=== PATIENT | female | born 1985 | race Caucasian/White ===

== ENCOUNTER 2017-03-13 21:23 | Inpatient (IN) | payer OTHER ==
[2017-03-13 23:27] LABS: ADD MAN DIFF? NO
[2017-03-13 23:32] LABS: BASOPHILS % 0.2 % (0.0-2.0); EOSINOPHILS # 0.3 10^3/ul (0.0-0.5); EOSINOPHILS % 3.2 % (0.0-7.0); HEMATOCRIT 26.4 % (37.0-47.0); HEMOGLOBIN 8.4 g/dl (12.0-16.0); LYMPHOCYTES # 1.3 10^3/ul (0.8-2.9); LYMPHOCYTES % 15.5 % (15.0-51.0); MEAN CORPUSCULAR HEMOGLOBIN 28.5 pg (29.0-33.0); MEAN CORPUSCULAR HGB CONC 31.8 g/dl (32.0-37.0); MEAN CORPUSCULAR VOLUME 89.5 fl (82.0-101.0); MONOCYTE # 0.7 10^3/ul (0.3-0.9); MONOCYTES % 7.7 % (0.0-11.0); NEUTROPHIL # 6.3 10^3/ul (1.6-7.5); NEUTROPHILS % 72.9 % (39.0-77.0); PLATELET COUNT 280 10^3/UL (140-415); RED BLOOD COUNT 2.95 10^6/ul (4.20-5.40); RED CELL DISTRIBUTION WIDTH 14.2 % (11.5-14.5)
[2017-03-13 23:32] LABS: WHITE BLOOD COUNT 8.6 10^3/ul (4.8-10.8)
[2017-03-14 00:23] LABS: HEPATITIS B SURFACE ANTIGEN NEGATIVE (NEGATIVE)
[2017-03-14 00:38] LABS: HIV 1&2 ANTIBODY NEGATIVE (NEGATIVE)
[2017-03-14 02:05] LABS: ADD UMIC YES; UR ASCORBIC ACID 40 mg/dL (NEGATIVE); UR BACTERIA FEW /HPF (NONE SEEN); UR BILIRUBIN (Dip) NEGATIVE (NEGATIVE); UR BLOOD (Dip) NEGATIVE (NEGATIVE); UR CLARITY CLOUDY (CLEAR); UR COLOR YELLOW (YELLOW); UR GLUCOSE (Dip) NEGATIVE (NEGATIVE); UR KETONES (Dip) NEGATIVE (NEGATIVE); UR LEUKOCYTE ESTERASE (Dip) 3+ Leu/ul (NEGATIVE); UR MUCUS FEW /HPF (NONE SEEN); UR NITRITE (Dip) POSITIVE (NEGATIVE); UR RBC 20 /HPF (0-5); UR SPECIFIC GRAVITY (Dip) 1.024 (1.003-1.030); UR SQUAMOUS EPITHELIAL CELL FEW /HPF (FEW); UR TOTAL PROTEIN (Dip) NEGATIVE (NEGATIVE); UR UROBILINOGEN (Dip) NEGATIVE (NEGATIVE); UR WBC 74 /HPF (0-5)
[2017-03-14] MEDS: LACTATED RINGER'S 1,000 ML IV (03:38)
[2017-03-14] MEDS: SOD CHLORIDE 0.9% 1,000 ML IV ×4 (04:19→23:23)
[2017-03-14] MEDS: CEFTRIAXONE 1 GM/50 ML (PMX) 50 ML IVPB (04:24)
[2017-03-14] MEDS ORDERED: CEFTRIAXONE 1 GM INJ IVPB (09:00)
[2017-03-14] MEDS: DOCUSATE SODIUM 100 MG CAP PO (09:13)
[2017-03-14] MEDS: PRENATAL VITAMIN PO (09:13)
[2017-03-14 16:38] LABS: RAPID PLASMA REAGIN REACTIVE (NR)
[2017-03-14] MEDS: ACETAMINOPHEN 325 MG TAB PO (23:23)
[2017-03-15 00:42] LABS: HEPATITIS C VIRAL ANTIBODY NEGATIVE (NEGATIVE)
[2017-03-15] MEDS: CEFTRIAXONE 1 GM/50 ML (PMX) 50 ML IVPB (03:43)
[2017-03-15] MEDS: SOD CHLORIDE 0.9% 1,000 ML IV ×3 (06:32→22:11)
[2017-03-15] MEDS: ACETAMINOPHEN 325 MG TAB PO (09:09)
[2017-03-15] MEDS: PRENATAL VITAMIN PO (09:09)
[2017-03-15] MEDS: DOCUSATE SODIUM 100 MG CAP PO (09:09)
[2017-03-15 12:01] LABS: RUBELLA ANTIBODY - IGG 1.26 index
[2017-03-16] MEDS ORDERED: LACTATED RINGER'S 1,000 ML IV (02:38)
[2017-03-16] MEDS: CEFTRIAXONE 1 GM/50 ML (PMX) 50 ML IVPB (03:57)
[2017-03-16] MEDS: SOD CHLORIDE 0.9% 1,000 ML IV (06:31)
[2017-03-16] MEDS ORDERED: BETAMET NA PHOS/AC(6 MG/ML) 5ML INJ IM (09:00)
[2017-03-16] MEDS: DOCUSATE SODIUM 100 MG CAP PO (09:50)
[2017-03-16] MEDS: FERROUS SULFATE (EC) 325 MG TAB PO (09:50)
[2017-03-16] MEDS: PRENATAL VITAMIN PO (09:50)
[2017-03-16 12:47] LABS: RUBELLA ANTIBODY - IGM <20.00 AU/mL
[2017-03-16 20:12] LABS: FLUORESCENT TREPONEMAL AB REACTIVE (NON-REACTIVE)
== END 2017-03-16 11:15 | disposition left against medical advice (07) | DRG 781 ==
LOC: OBT 21:23 → L-D 21:24 → PP1 03-14 22:57
DX: O23.02 Infections of kidney in pregnancy, second trimester (principal); O60.02 Preterm labor without delivery, second trimester; N10 Acute pyelonephritis; B96.20 Unspecified Escherichia coli [E. coli] as the cause of diseases classified elsewhere; O09.32 Supervision of pregnancy with insufficient antenatal care, second trimester; Z3A.24 24 weeks gestation of pregnancy; Z59.0 Homelessness
CPT/HCPCS: 36415; 76815; 76817; 81001; 85025; 86592; 86703; 86762; 86803; 86900; 86901; 87086; 87285; 87340

== ENCOUNTER 2017-03-16 17:23 | Outpatient (CLI) | payer OTHER | END 2017-03-16 17:36 | disposition left against medical advice (07) | LOC: OBT 17:23 → L-D 17:24 → OBT 17:36 | DX: O26.852 Spotting complicating pregnancy, second trimester (principal); Z3A.24 24 weeks gestation of pregnancy | CPT/HCPCS: Z7500 ==

== ENCOUNTER 2017-04-28 17:01 | Outpatient (CLI) | payer OTHER | END 2017-04-28 20:42 | disposition home or self-care (01) | LOC: OBT 17:01 → L-D 17:02 → OBT 20:42 | DX: O26.893 Other specified pregnancy related conditions, third trimester (principal); R10.2 Pelvic and perineal pain | CPT/HCPCS: 76817 ==

== ENCOUNTER 2017-05-16 11:42 | Inpatient (IN) | payer OTHER ==
[2017-05-16 14:26] LABS: ADD UMIC YES; UR ASCORBIC ACID 40 mg/dL (NEGATIVE); UR BACTERIA FEW /HPF (NONE SEEN); UR BILIRUBIN (Dip) NEGATIVE (NEGATIVE); UR BLOOD (Dip) NEGATIVE (NEGATIVE); UR CLARITY SLIGHTLY CLOUDY (CLEAR); UR COLOR YELLOW (YELLOW); UR GLUCOSE (Dip) NEGATIVE (NEGATIVE); UR KETONES (Dip) NEGATIVE (NEGATIVE); UR LEUKOCYTE ESTERASE (Dip) 3+ Leu/ul (NEGATIVE); UR MUCUS FEW /HPF (NONE SEEN); UR NITRITE (Dip) NEGATIVE (NEGATIVE); UR RBC 3 /HPF (0-5); UR SPECIFIC GRAVITY (Dip) 1.025 (1.003-1.030); UR SQUAMOUS EPITHELIAL CELL FEW /HPF (FEW); UR TOTAL PROTEIN (Dip) NEGATIVE (NEGATIVE); UR UROBILINOGEN (Dip) 1+ mg/dL (NEGATIVE); UR WBC 21 /HPF (0-5)
[2017-05-16 14:37] LABS: RUPTURE FETAL MEMBRANES NEGATIVE (NEGATIVE)
[2017-05-16 14:58] LABS: AMPHETAMINE/METHAMPHETAMINE Negative (NEGATIVE)
[2017-05-16 15:09] LABS: BARBITURATES Negative (NEGATIVE); BENZODIAZEPINES Negative (NEGATIVE); CANNABINOIDS Negative (NEGATIVE); COCAINE Negative (NEGATIVE); OPIATES Negative (NEGATIVE)
[2017-05-16] MEDS: ACETAMINOPHEN 325 MG TAB PO (17:07)
[2017-05-16] MEDS: LACTATED RINGER'S 1,000 ML IV ×2 (17:07→20:36)
[2017-05-16] MEDS: PENICILLIN G BENZ 2.4 MIL UNIT SYG IM (17:27)
[2017-05-16] MEDS: DIPHTH/TET/ACEL PERTUSS (ADULT) 0.5 ML VIAL IM* (17:31)
[2017-05-16] MEDS: AZITHROMYCIN 250 MG TAB PO (17:38)
[2017-05-16 17:53] LABS: ADD MAN DIFF? NO
[2017-05-16 17:56] LABS: WHITE BLOOD COUNT 9.6 10^3/ul (4.8-10.8)
[2017-05-16 17:56] LABS: BASOPHILS % 0.3 % (0.0-2.0); EOSINOPHILS # 0.2 10^3/ul (0.0-0.5); EOSINOPHILS % 2.1 % (0.0-7.0); HEMATOCRIT 26.2 % (37.0-47.0); HEMOGLOBIN 8.2 g/dl (12.0-16.0); LYMPHOCYTES # 1.2 10^3/ul (0.8-2.9); LYMPHOCYTES % 12.1 % (15.0-51.0); MEAN CORPUSCULAR HEMOGLOBIN 25.6 pg (29.0-33.0); MEAN CORPUSCULAR HGB CONC 31.3 g/dl (32.0-37.0); MEAN CORPUSCULAR VOLUME 81.9 fl (82.0-101.0); MEAN PLATELET VOLUME 9.4 fl (7.4-10.4); MONOCYTE # 0.7 10^3/ul (0.3-0.9); MONOCYTES % 7.6 % (0.0-11.0); NEUTROPHIL # 7.2 10^3/ul (1.6-7.5); NEUTROPHILS % 75.7 % (39.0-77.0); PLATELET COUNT 314 10^3/UL (140-415); RED CELL DISTRIBUTION WIDTH 15.7 % (11.5-14.5)
[2017-05-16 18:55] LABS: HEPATITIS B SURFACE ANTIGEN NEGATIVE (NEGATIVE)
[2017-05-16 19:13] LABS: HEPATITIS C VIRAL ANTIBODY NEGATIVE (NEGATIVE)
[2017-05-16] MEDS: ACETAMINOPHEN 500 MG TAB PO (19:26)
[2017-05-16 20:05] LABS: HIV 1&2 ANTIBODY NEGATIVE (NEGATIVE)
[2017-05-17] MEDS: LACTATED RINGER'S 1,000 ML IV ×3 (00:49→17:08)
[2017-05-17] MEDS: CEFTRIAXONE 250 MG INJ IM (00:50)
[2017-05-17] MEDS: PRENATAL VITAMIN PO (09:22)
[2017-05-17] MEDS: FERROUS SULFATE (EC) 325 MG TAB PO (09:22)
[2017-05-17] MEDS: DOCUSATE SODIUM 100 MG CAP PO (09:22)
[2017-05-17] MEDS: ACETAMINOPHEN 500 MG TAB PO ×2 (11:38→17:11)
[2017-05-17 21:57] LABS: RAPID PLASMA REAGIN NONREACTIVE (NR)
[2017-05-18] MEDS: LACTATED RINGER'S 1,000 ML IV (00:20)
== END 2017-05-18 02:00 | disposition left against medical advice (07) | DRG 781 ==
LOC: OBT 11:42 → L-D 05-17 08:32 → OBT 15:20 → L-D 15:20
DX: O98.113 Syphilis complicating pregnancy, third trimester (principal); R42 Dizziness and giddiness; Z3A.33 33 weeks gestation of pregnancy
CPT/HCPCS: 76815; 76817; 76818; 80307; 81001; 84112; 85025; 86592; 86703; 86803; 86850; 86900; 86901; 87086; 87340; 87591; 90715

== ENCOUNTER 2017-06-03 02:53 | Outpatient (CLI) | payer OTHER ==
[2017-06-03] MEDS: LACTATED RINGER'S 1,000 ML IV (03:59)
[2017-06-03 04:14] LABS: ADD UMIC YES; UR ASCORBIC ACID NEGATIVE (NEGATIVE); UR BILIRUBIN (Dip) NEGATIVE (NEGATIVE); UR BLOOD (Dip) NEGATIVE (NEGATIVE); UR CLARITY SLIGHTLY CLOUDY (CLEAR); UR COLOR YELLOW (YELLOW); UR GLUCOSE (Dip) NEGATIVE (NEGATIVE); UR KETONES (Dip) NEGATIVE (NEGATIVE); UR LEUKOCYTE ESTERASE (Dip) 3+ Leu/ul (NEGATIVE); UR NITRITE (Dip) NEGATIVE (NEGATIVE); UR RBC 3 /HPF (0-5); UR SPECIFIC GRAVITY (Dip) 1.014 (1.003-1.030); UR SQUAMOUS EPITHELIAL CELL FEW /HPF (FEW); UR TOTAL PROTEIN (Dip) NEGATIVE (NEGATIVE); UR UROBILINOGEN (Dip) NEGATIVE (NEGATIVE); UR WBC 19 /HPF (0-5)
[2017-06-03 04:21] LABS: RUPTURE FETAL MEMBRANES NEGATIVE (NEGATIVE)
== END 2017-06-03 05:15 | disposition home or self-care (01) ==
LOC: OBT 02:53 → L-D 02:54 → OBT 05:15
DX: O60.03 Preterm labor without delivery, third trimester (principal); Z3A.36 36 weeks gestation of pregnancy
CPT/HCPCS: 36415; 76818; 81001; 84112; 87086

== ENCOUNTER 2017-09-17 13:23 | Emergency (ER) | payer SELFPAY, OTHER | END 2017-09-17 13:58 | disposition left against medical advice (07) | LOC: E/R 13:58 | DX: Z53.21 Procedure and treatment not carried out due to patient leaving prior to being seen by health care provider (principal) ==

== ENCOUNTER 2018-08-31 16:56 | Observation (INO) | payer OTHER ==
[2018-08-31 17:41] LABS: ADD MAN DIFF? NO
[2018-08-31 17:51] LABS: WHITE BLOOD COUNT 5.1 10^3/ul (4.8-10.8)
[2018-08-31 17:51] LABS: ABNORMAL IP MESSAGE 1; BASOPHILS % 0.4 % (0.0-2.0); EOSINOPHILS # 0.2 10^3/ul (0.0-0.5); EOSINOPHILS % 3.1 % (0.0-7.0); HEMATOCRIT 36.1 % (37.0-47.0); HEMOGLOBIN 11.3 g/dl (12.0-16.0); LYMPHOCYTES # 1.2 10^3/ul (0.8-2.9); LYMPHOCYTES % 23.8 % (15.0-51.0); MEAN CORPUSCULAR HEMOGLOBIN 25.6 pg (29.0-33.0); MEAN CORPUSCULAR HGB CONC 31.3 g/dl (32.0-37.0); MEAN CORPUSCULAR VOLUME 81.9 fl (82.0-101.0); MEAN PLATELET VOLUME 9.1 fl (7.4-10.4); MONOCYTE # 0.4 10^3/ul (0.3-0.9); MONOCYTES % 7.6 % (0.0-11.0); NEUTROPHIL # 3.3 10^3/ul (1.6-7.5); NEUTROPHILS % 65.1 % (39.0-77.0); PLATELET COUNT 279 10^3/UL (140-415); RED BLOOD COUNT 4.41 10^6/ul (4.20-5.40)
[2018-08-31 17:58] LABS: POSITIVE DIFF @See below
[2018-08-31 18:02] LABS: ANION GAP 7 (5-13); BLOOD UREA NITROGEN 10 mg/dl (7-20); CARBON DIOXIDE 27 mmol/L (21-31); CHLORIDE 108 mmol/L (97-110); CREATININE 0.87 mg/dl (0.44-1.00); Estimated GFR > 60 mL/min (>60); GLUCOSE 94 mg/dl (70-220); POTASSIUM 3.8 mmol/L (3.5-5.1); SODIUM 142 mmol/L (135-144)
[2018-08-31 19:06] LABS: TROPONIN-I < 0.012 ng/ml (0.000-0.120)
[2018-08-31 19:49] LABS: RETICULOCYTE RBC 4.37
[2018-08-31 19:49] LABS: RETICULOCYTE COUNT # 0.036 X10^6 (0.020-0.110); RETICULOCYTE COUNT % 0.8 % (0.5-1.5)
[2018-08-31] MEDS ORDERED: ACETAMINOPHEN 325 MG TAB PO ×2 (20:00→20:30)
[2018-08-31] MEDS ORDERED: ONDANSETRON 4 MG INJ IV (20:00)
[2018-08-31 20:18] LABS: ADD UMIC NO; UR ASCORBIC ACID NEGATIVE (NEGATIVE); UR BILIRUBIN (Dip) NEGATIVE (NEGATIVE); UR BLOOD (Dip) NEGATIVE (NEGATIVE); UR CLARITY CLEAR (CLEAR); UR COLOR YELLOW (YELLOW); UR GLUCOSE (Dip) NEGATIVE (NEGATIVE); UR KETONES (Dip) NEGATIVE (NEGATIVE); UR LEUKOCYTE ESTERASE (Dip) NEGATIVE Leu/ul (NEGATIVE); UR NITRITE (Dip) NEGATIVE (NEGATIVE); UR SPECIFIC GRAVITY (Dip) 1.019 (1.003-1.030); UR TOTAL PROTEIN (Dip) NEGATIVE (NEGATIVE); UR UROBILINOGEN (Dip) NEGATIVE (NEGATIVE)
[2018-08-31 20:22] LABS: SICKLE CELL SCREEN NEGATIVE (NEGATIVE)
[2018-08-31] MEDS ORDERED: NITROGLYCERIN (SL) 0.4 MG TAB SL (20:30)
[2018-08-31] MEDS ORDERED: morphine 2 MG INJ IV (20:30)
[2018-08-31] MEDS: SOD CHLORIDE 0.9% 500 ML IV (20:30)
[2018-08-31] MEDS ORDERED: BISACODYL (EC) 5 MG TAB PO (20:30)
[2018-08-31] MEDS ORDERED: NACL 0.9% 3 ML SYG IV (20:30)
[2018-08-31] MEDS ORDERED: DOCUSATE SODIUM 100 MG CAP PO (20:30)
[2018-08-31 20:46] LABS: MAGNESIUM 2.2 mg/dl (1.7-2.5)
[2018-08-31] MEDS: SOD CHLORIDE 0.9% 100 ML (23:02)
[2018-08-31] MEDS: IOHEXOL 100 ML (23:02)
[2018-08-31 23:47] LABS: CREATINE KINASE 43 IU/L (23-200)
[2018-09-01 00:01] LABS: CK INDEX 0.5; CK-MB < 0.22 ng/ml (0.0-2.4); TROPONIN-I < 0.012 ng/ml (0.000-0.120)
[2018-09-01 06:22] LABS: ADD MAN DIFF? NO
[2018-09-01 06:35] LABS: ABNORMAL IP MESSAGE 1; BASOPHILS % 0.6 % (0.0-2.0); EOSINOPHILS # 0.2 10^3/ul (0.0-0.5); EOSINOPHILS % 4.1 % (0.0-7.0); HEMATOCRIT 35.2 % (37.0-47.0); LYMPHOCYTES # 1.5 10^3/ul (0.8-2.9); LYMPHOCYTES % 30.2 % (15.0-51.0); MEAN CORPUSCULAR HEMOGLOBIN 25.7 pg (29.0-33.0); MEAN CORPUSCULAR HGB CONC 31.3 g/dl (32.0-37.0); MEAN CORPUSCULAR VOLUME 82.2 fl (82.0-101.0); MEAN PLATELET VOLUME 9.7 fl (7.4-10.4); MONOCYTE # 0.5 10^3/ul (0.3-0.9); MONOCYTES % 10.3 % (0.0-11.0); NEUTROPHIL # 2.6 10^3/ul (1.6-7.5); NEUTROPHILS % 54.6 % (39.0-77.0); PLATELET COUNT 288 10^3/UL (140-415); RED BLOOD COUNT 4.28 10^6/ul (4.20-5.40)
[2018-09-01 06:35] LABS: WHITE BLOOD COUNT 4.8 10^3/ul (4.8-10.8)
[2018-09-01 06:40] LABS: POSITIVE DIFF @See below
[2018-09-01 07:03] LABS: CREATINE KINASE 39 IU/L (23-200)
[2018-09-01 07:06] LABS: IRON 64 ug/dl (35-150)
[2018-09-01 07:12] LABS: CK INDEX 0.6; CK-MB < 0.22 ng/ml (0.0-2.4); TROPONIN-I < 0.012 ng/ml (0.000-0.120)
[2018-09-01 07:15] LABS: % IRON SATURATION 22 % SAT (22-52); TOTAL IRON BINDING CAPACITY 287 ug/dl (241-421)
[2018-09-01 07:25] LABS: ALANINE AMINOTRANSFERASE 13 IU/L (13-69); ALBUMIN 3.5 g/dl (3.3-4.9); ALBUMIN/GLOBULIN RATIO 1.29; ALKALINE PHOSPHATASE 56 IU/L (42-121); ANION GAP 11 (5-13); ASPARTATE AMINO TRANSFERASE 12 IU/L (15-46); BILIRUBIN,INDIRECT 0.3 mg/dl (0-1.1); BILIRUBIN,TOTAL 0.3 mg/dl (0.2-1.3); BLOOD UREA NITROGEN 12 mg/dl (7-20); CALCIUM 9.1 mg/dl (8.4-10.2); CARBON DIOXIDE 25 mmol/L (21-31); CHLORIDE 106 mmol/L (97-110); CREATININE 0.79 mg/dl (0.44-1.00); Estimated GFR > 60 mL/min (>60); GLUCOSE 84 mg/dl (70-220); MAGNESIUM 1.9 mg/dl (1.7-2.5); SODIUM 142 mmol/L (135-144); TOTAL PROTEIN 6.2 g/dl (6.1-8.1)
[2018-09-01 08:21] LABS: HEMOGLOBIN A1C 4.7 % (0-5.9)
[2018-09-01] MEDS: CALCIUM CARBONATE 1.25 GM TAB PO (08:28)
[2018-09-01] MEDS: FERROUS SULFATE (EC) 325 MG TAB PO (08:28)
[2018-09-01 08:33] LABS: FERRITIN 24.5 ng/ml (6.2-137.0)
[2018-09-01] MEDS: ENOXAPARIN 40 MG/0.4 ML SYG SC (08:33)
[2018-09-01 12:48] LABS: ADD UMIC NO; UR ASCORBIC ACID NEGATIVE (NEGATIVE); UR BILIRUBIN (Dip) NEGATIVE (NEGATIVE); UR BLOOD (Dip) NEGATIVE (NEGATIVE); UR CLARITY CLEAR (CLEAR); UR COLOR STRAW (YELLOW); UR GLUCOSE (Dip) NEGATIVE (NEGATIVE); UR KETONES (Dip) NEGATIVE (NEGATIVE); UR LEUKOCYTE ESTERASE (Dip) NEGATIVE Leu/ul (NEGATIVE); UR NITRITE (Dip) NEGATIVE (NEGATIVE); UR SPECIFIC GRAVITY (Dip) 1.012 (1.003-1.030); UR TOTAL PROTEIN (Dip) NEGATIVE (NEGATIVE); UR UROBILINOGEN (Dip) NEGATIVE (NEGATIVE)
[2018-09-01 13:29] LABS: AMPHETAMINE/METHAMPHETAMINE Negative (NEGATIVE); BARBITURATES Negative (NEGATIVE); BENZODIAZEPINES Negative (NEGATIVE); CANNABINOIDS Negative (NEGATIVE); COCAINE Negative (NEGATIVE); OPIATES Negative (NEGATIVE)
[2018-09-02] MEDS: CALCIUM CARBONATE 1.25 GM TAB PO (08:48)
[2018-09-02] MEDS: FERROUS SULFATE (EC) 325 MG TAB PO (08:48)
[2018-09-02] MEDS: ENOXAPARIN 40 MG/0.4 ML SYG SC (08:54)
[2018-09-02 10:05] LABS: ADD MAN DIFF? NO
[2018-09-02 10:07] LABS: ABNORMAL IP MESSAGE 1; BASOPHILS % 0.5 % (0.0-2.0); EOSINOPHILS # 0.2 10^3/ul (0.0-0.5); EOSINOPHILS % 3.9 % (0.0-7.0); HEMATOCRIT 36.3 % (37.0-47.0); HEMOGLOBIN 11.4 g/dl (12.0-16.0); LYMPHOCYTES # 1.3 10^3/ul (0.8-2.9); LYMPHOCYTES % 22.1 % (15.0-51.0); MEAN CORPUSCULAR HEMOGLOBIN 25.7 pg (29.0-33.0); MEAN CORPUSCULAR HGB CONC 31.4 g/dl (32.0-37.0); MEAN CORPUSCULAR VOLUME 81.8 fl (82.0-101.0); MEAN PLATELET VOLUME 9.2 fl (7.4-10.4); MONOCYTE # 0.5 10^3/ul (0.3-0.9); MONOCYTES % 8.7 % (0.0-11.0); NEUTROPHIL # 3.8 10^3/ul (1.6-7.5); NEUTROPHILS % 64.6 % (39.0-77.0); PLATELET COUNT 287 10^3/UL (140-415); RED BLOOD COUNT 4.44 10^6/ul (4.20-5.40)
[2018-09-02 10:07] LABS: WHITE BLOOD COUNT 5.9 10^3/ul (4.8-10.8)
[2018-09-02 10:09] LABS: POSITIVE DIFF @See below
[2018-09-02 10:28] LABS: ALANINE AMINOTRANSFERASE 9 IU/L (13-69); ALBUMIN 3.8 g/dl (3.3-4.9); ALBUMIN/GLOBULIN RATIO 1.15; ALKALINE PHOSPHATASE 56 IU/L (42-121); ANION GAP 10 (5-13); ASPARTATE AMINO TRANSFERASE 15 IU/L (15-46); BILIRUBIN,INDIRECT 0.4 mg/dl (0-1.1); BILIRUBIN,TOTAL 0.4 mg/dl (0.2-1.3); BLOOD UREA NITROGEN 15 mg/dl (7-20); CALCIUM 9.1 mg/dl (8.4-10.2); CARBON DIOXIDE 27 mmol/L (21-31); CHLORIDE 104 mmol/L (97-110); Estimated GFR > 60 mL/min (>60); GLUCOSE 82 mg/dl (70-220); INR 0.92; POTASSIUM 4.1 mmol/L (3.5-5.1); PROTIME 12.5 Sec (11.9-14.9); SODIUM 141 mmol/L (135-144); TOTAL PROTEIN 7.1 g/dl (6.1-8.1)
[2018-09-02 10:29] LABS: PARTIAL THROMBOPLASTIN TIME 47.3 Sec (23.0-35.0)
[2018-09-02 12:05] LABS: MAGNESIUM 1.7 mg/dl (1.7-2.5)
[2018-09-02 12:05] LABS: PHOSPHORUS 4.2 mg/dl (2.5-4.9)
[2018-09-02 12:18] LABS: TROPONIN-I < 0.012 ng/ml (0.000-0.120)
== END 2018-09-02 11:35 | disposition home or self-care (01) ==
LOC: E/R 16:56 → 6WM 19:41
DX: R07.89 Other chest pain (principal); R00.1 Bradycardia, unspecified; A53.9 Syphilis, unspecified; D50.9 Iron deficiency anemia, unspecified; Z87.891 Personal history of nicotine dependence
CPT/HCPCS: 36415; 71045; 71275; 80048; 80053; 80307; 81003; 81025; 82550; 82553; 82728; 83036; 83540; 83735; 84100; 84443; 84484; 84703; 85025; 85045; 85610; 85660; 85730; 86850; 86900; 86901; 93005; 93306; 93970; 99285-25; G0378